=== PATIENT | male | born 1955 | race Caucasian/White ===

== ENCOUNTER 2017-03-05 09:25 | Emergency (ER) | payer MEDICAID ==
[2017-03-05 09:35] VITALS: RESP 18
--- NOTE | 2017-03-05 10:41 | RAD ---
PROCEDURE: Radiographs of the Chest and Left Ribs. HISTORY: pain, fall COMPARISON: None available. TECHNIQUE: Frontal radiograph of the chest and multiple oblique radiographs of the left ribs were obtained. FINDINGS: LEFT RIBS: No acute displaced fracture identified. LUNGS: Biapical pleural thickening. Hyperinflation may be seen in setting of COPD. Increased lucencies with upper lobe predominance compatible with emphysema. PLEURA: No significant pleural effusion. No definite pneumothorax. CARDIOVASCULAR: Heart size appears within normal limits. OTHER FINDINGS: Left upper quadrant surgical clips. IMPRESSION: Biapical pleural thickening. Findings consistent with COPD/emphysema. Left upper quadrant surgical clips. No appreciable acute displaced left rib fracture.
--- NOTE | 2017-03-05 10:55 | C.PDOC ---
History Of Present Illness 61 yr old male presents to the ER with complaints of left rib cage pain to the mid axillary line for 1 day. 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 Patient reports the pain is 10/ 10, increases with moving, palpations and while sleeping. Patient denies LOC, chest pain, SOB, vomiting, headache, weakness or numbness. Time Seen by Provider: 03/05/17 10:07 Chief Complaint (Nursing): Back Pain History Per: Patient History/Exam Limitations: no limitations Onset/Duration Of Symptoms: Days (1) Current Symptoms Are (Timing): Still Present Quality Of Discomfort: Sharp Past Medical History Reviewed: Historical Data, Nursing Documentation, Vital Signs Vital Signs: Last Vital Signs Temp 98.5 F 03/05/17 09:34 Pulse 60 03/05/17 09:34 Resp 18 03/05/17 09:34 BP 148/75 03/05/17 09:34 Pulse Ox 100 03/05/17 11:09 Family History: States: No Known Family Hx - Social History Hx Alcohol Use: Yes Hx Substance Use: Yes - Immunization History Hx Tetanus Toxoid Vaccination: No Hx Influenza Vaccination: No Hx Pneumococcal Vaccination: No Review Of Systems Except As Marked, All Systems Reviewed And Found Negative. Cardiovascular: Positive for: Other ((+) Left rib cage, mid axillary line). Negative for: Chest Pain Respiratory: Negative for: Shortness of Breath Gastrointestinal: Negative for: Vomiting Neurological: Negative for: Weakness, Numbness, Headache Physical Exam - Physical Exam Appears: Non-toxic, In Acute Distress Skin: Warm, Dry, No Rash, No Jaundice Head: Atraumatic, Normacephalic Oral Mucosa: Moist Chest: Symmetrical, Tenderness (To the 2nd, 3rd and 4th ribs, mid axillary line. No bruising or swelling. ) Cardiovascular: Rhythm Regular, No Murmur Respiratory: Normal Breath Sounds, No Rales, No Rhonchi, No Stridor, No Wheezing Gastrointestinal/Abdominal: Normal Exam, Soft, No Tenderness, No Guarding, No Rebound Extremity: Normal ROM, No Swelling Neurological/Psych: Oriented x3, Normal Speech ED Course And Treatment O2 Sat by Pulse Oximetry: 100 - Other Rad X-Ray - Ribs & Chest X-Ray: Viewed By Me, Read By Radiologist Interpretation: PROCEDURE: Radiographs of the Chest and Left Ribs. HISTORY: pain, fall. COMPARISON: None available. TECHNIQUE: Frontal radiograph of the chest and multiple oblique radiographs of the left ribs were obtained. FINDINGS: LEFT RIBS: No acute displaced fracture identified. LUNGS: Biapical pleural thickening. Hyperinflation may be seen in setting of COPD. Increased lucencies with upper lobe predominance compatible with emphysema. PLEURA: No significant pleural effusion. No definite pneumothorax. CARDIOVASCULAR: Heart size appears within normal limits. OTHER FINDINGS: Left upper quadrant surgical clips. IMPRESSION: Biapical pleural thickening. Findings consistent with COPD/emphysema. Left upper quadrant surgical clips. No appreciable acute displaced left rib fracture. Medical Decision Making Medical Decision Making: PLAN: * X-Ray - Ribs & Chest * Tramadol PO * Motrin PO Disposition Counseled Patient/Family Regarding: Studies Performed, Diagnosis, Need For Followup, Rx Given - Disposition Referrals: [facility] [Outside] Disposition: HOME/ ROUTINE Disposition Time: 11:36 Condition: STABLE Prescriptions: Ibuprofen [Motrin] 600 mg PO TID #15 tab traMADol/Acetaminophen [Ultracet 37.5/325 mg] 1 tab PO TID PRN #20 tab PRN Reason: pain Instructions: Rib Contusion (ED) Forms: General Discharge Instructions, Work Excuse - POA Present On Arrival: None - Clinical Impression Clinical Impression: Contusion of back - Scribe Statement The provider has reviewed the documentation as recorded by the Nura Knight Provider Attestation: All medical record entries made by the [employer]remedios were at my direction and personally dictated by me. I have reviewed the chart and agree that the record accurately reflects my personal performance of the history, physical exam, medical decision making, and the department course for this patient. I have also personally directed, reviewed, and agree with the discharge instructions and disposition.
[2017-03-05 11:47] VITALS: BP 126/74; PULSE 59; TEMP 98.3; O2SAT 97
== END 2017-03-05 11:48 | disposition home or self-care (01) ==
LOC: C.ER 09:25
DX: S20.222A Contusion of left back wall of thorax, initial encounter (principal); W22.8XXA Striking against or struck by other objects, initial encounter

== ENCOUNTER 2017-03-20 16:42 | Emergency (ER) | payer MEDICAID ==
[2017-03-20 16:47] VITALS: BMI 17.7
[2017-03-20 16:49] VITALS: TEMP 97.5
[2017-03-20] MEDS ORDERED: Albuterol-Ipratrop 3 mg / 0.5 (3 ml) UD INH STA ×3 (17:02→17:03)
--- NOTE | 2017-03-20 17:06 | C.PDOC ---
History Of Present Illness 61 yo male, hx of asthma, hospitalized previously, presents with wheezing/cough x 3 days. pt states ran out of inhaler, and did not have rx for inhaler. pt denies fevers, n/v/d, new cp (states he was seen in er for fall 1 week ago with improving pain to left side). no fevers, or other complaints. Time Seen by Provider: 03/20/17 16:52 Chief Complaint (Nursing): Shortness Of Breath Past Medical History Reviewed: Historical Data, Nursing Documentation, Vital Signs Vital Signs: Last Vital Signs Temp 97.5 F L 03/20/17 16:46 Pulse 84 03/20/17 18:15 Resp 18 03/20/17 18:15 BP 108/75 03/20/17 18:15 Pulse Ox 95 03/20/17 18:18 - Medical History PMH: Asthma Family History: States: Unknown Family Hx - Social History Hx Alcohol Use: No Hx Substance Use: No - Immunization History Hx Tetanus Toxoid Vaccination: No Hx Influenza Vaccination: No Hx Pneumococcal Vaccination: No Review Of Systems Except As Marked, All Systems Reviewed And Found Negative. Respiratory: Positive for: Cough, Shortness of Breath, Wheezing Physical Exam - Physical Exam Appears: Well, No Acute Distress, Other (speaking full sentences, no accessory muscle use, no increased wob. ) Skin: Normal Color, Warm, Dry Eye(s): bilateral: Normal Inspection, PERRL, EOMI Nose: Normal Throat: Normal Neck: Normal Cardiovascular: Rhythm Regular Respiratory: Wheezing Gastrointestinal/Abdominal: Normal Exam Back: Normal Inspection Extremity: Normal ROM ED Course And Treatment O2 Sat by Pulse Oximetry: 95 - Other Rad CXR X-Ray: Viewed By Me, Read By Radiologist Interpretation: HISTORY: cough. COMPARISON: Chest x-ray performed 03/05/17. TECHNIQUE: Chest PA and lateral. FINDINGS: LUNGS: Biapical pleural thickening. Increased lucencies especially within the bilateral upper lung hale compatible with underlying emphysema. There is hyperinflation, as well as architectural distortion consistent with underlying emphysema/COPD. No focal consolidation. Please note that chest x-ray has limited sensitivity for the detection of pulmonary masses. PLEURA: No significant pleural effusion identified. No definite pneumothorax . CARDIOVASCULAR: Heart size appears top normal. OSSEOUS STRUCTURES: Degenerative changes. VISUALIZED UPPER ABDOMEN: Elevation of the right hemidiaphragm. Left upper quadrant clips. OTHER FINDINGS : None. IMPRESSION: Findings compatible with COPD/ emphysema. Biapical pleural thickening. Medical Decision Making Medical Decision Making: asthma exacerbation- nebs steriods, cxr reassess 550: pt reassesed whezing improving. 615: wheezing improved. pt ambulatory in er in [place]. asking for d/c. does not wish for further observation in er. pt also asks for rx for left sided rib pain , after injury he sustained 2 weeks ago. naproxen rx given. Disposition - Disposition Disposition: HOME/ ROUTINE Disposition Time: 17:41 Condition: STABLE Additional Instructions: please follow up with your doctor. return to er with worsening symptoms or concerns. Prescriptions: Albuterol HFA [Ventolin HFA 90 mcg/actuation (8 g)] 2 puff IH [id number] PRN #1 puff PRN Reason: Wheezing Albuterol 0.083% [Albuterol 0.083% Inhal Dang (2.5 mg/3 ml) UD] 2.5 mg IH Q6 PRN #20 neb PRN Reason: Wheezing Naproxen [Naprosyn] 500 mg PO BID PRN #14 tablet PRN Reason: Pain, Mild (1-3) Nebulizer [Aeroeclipse II] 1 each MC Q6 PRN #1 each PRN Reason: Wheezing Nebulizer Accessories [Sidestream Mask] 1 each MC Q6 PRN #1 each PRN Reason: Wheezing Prednisone 50 mg PO DAILY #5 tablet Instructions: Asthma (ED) - Clinical Impression Clinical Impression: Asthma, Medication refill
[2017-03-20] MEDS ORDERED: Albuterol-Ipratrop 3 mg / 0.5 (3 ml) UD ONE (17:09)
--- NOTE | 2017-03-20 17:35 | RAD ---
HISTORY: cough COMPARISON: Chest x-ray performed 03/05/17 TECHNIQUE: Chest PA and lateral FINDINGS: LUNGS: Biapical pleural thickening. Increased lucencies especially within the bilateral upper lung hale compatible with underlying emphysema. There is hyperinflation, as well as architectural distortion consistent with underlying emphysema/COPD. No focal consolidation. Please note that chest x-ray has limited sensitivity for the detection of pulmonary masses. PLEURA: No significant pleural effusion identified. No definite pneumothorax . CARDIOVASCULAR: Heart size appears top normal. OSSEOUS STRUCTURES: Degenerative changes. VISUALIZED UPPER ABDOMEN: Elevation of the right hemidiaphragm. Left upper quadrant clips. OTHER FINDINGS: None. IMPRESSION: Findings compatible with COPD/ emphysema. Biapical pleural thickening.
[2017-03-20 18:16] VITALS: BP 108/75; PULSE 84; RESP 18
[2017-03-20 18:18] VITALS: O2SAT 95
== END 2017-03-20 18:15 | disposition home or self-care (01) ==
LOC: C.ER 16:42
DX: J45.909 Unspecified asthma, uncomplicated (principal); Z76.0 Encounter for issue of repeat prescription

== ENCOUNTER 2018-03-03 23:36 | Emergency (ER) | payer MEDICAID ==
[2018-03-03 23:36] VITALS: BMI 17.7
[2018-03-03 23:43] VITALS: BP 117/75; PULSE 71; RESP 16; O2SAT 97
[2018-03-04] MEDS ORDERED: Acetaminophen-Codeine 300/30 mg Tab PO STA (00:43)
[2018-03-04] MEDS ORDERED: Acetaminophen-Codeine 300/30 mg Tab PO ONE (00:55)
--- NOTE | 2018-03-04 01:07 | C.PDOC ---
History Of Present Illness Patient is a 62 y/o male who presents to the ED with a complaint of pain to right upper teeth for the last 2 days. Patient reports he has not seen a dentist for the last 2 years. Denies any trauma. Admits taking OTC ibuprofin without any relief. No other physical complaints at this time. Time Seen by Provider: 03/03/18 23:52 Chief Complaint (Nursing): Dental Pain History Per: Patient History/Exam Limitations: no limitations Onset/Duration Of Symptoms: Days (2) Current Symptoms Are (Timing): Still Present Recent travel outside of the [place]: No Past Medical History Reviewed: Historical Data, Nursing Documentation, Vital Signs Vital Signs: Last Vital Signs Temp 99 F 03/04/18 01:15 Pulse 71 03/03/18 23:40 Resp 16 03/03/18 23:40 BP 117/75 03/03/18 23:40 Pulse Ox 97 03/04/18 02:09 - Medical History PMH: Asthma Surgical History: No Surg Hx Family History: States: No Known Family Hx - Social History Hx Tobacco Use: Yes (heavy smoker) Hx Alcohol Use: No Hx Substance Use: No - Immunization History Hx Tetanus Toxoid Vaccination: No Hx Influenza Vaccination: No Hx Pneumococcal Vaccination: No Review Of Systems ENT: Positive for: Other (dental pain to right upper teeth) Physical Exam - Physical Exam Appears: Well, Non-toxic, No Acute Distress Head: No Swelling (negative facial swelling) Oral Mucosa: Moist Teeth: Caries (extensive with tooth decay) Gingiva: Erythema, Swelling, Other (positive gingivitis; negative fluctuant mass or swelling to floor of mouth) Neck: Normal, Other (negative swelling) Neurological/Psych: Oriented x3, Normal Speech, Normal Cognition ED Course And Treatment O2 Sat by Pulse Oximetry: 97 Progress Note: Tylenol and Penicillin administered. Patient resting comfortably , stable for discharge, and advised to follow up with destist. Disposition Counseled Patient/Family Regarding: Diagnosis, Need For Followup, Rx Given - Disposition Referrals: [facility], Dental clinic- [facility] [Other] Disposition: HOME/ ROUTINE Disposition Time: 01:04 Condition: STABLE Additional Instructions: Please follow up at [facility] Dental clinic in [place] Return to ER if worse Prescriptions: Ibuprofen [Motrin Tab] 800 mg PO QID #20 tab Penicillin VK [Penicillin VK Tab] 500 mg PO Q6H #20 tab Instructions: Tooth Decay, Adult (DC) Forms: [employer] (Latvian) - Clinical Impression Clinical Impression: Dental caries - Scribe Statement The provider has reviewed the documentation as recorded by the Scribe Sultana Celis All medical record entries made by the Scribe were at my direction and personally dictated by me. I have reviewed the chart and agree that the record accurately reflects my personal performance of the history, physical exam, medical decision making, and the department course for this patient. I have also personally directed, reviewed, and agree with the discharge instructions and disposition.
[2018-03-04 01:15] VITALS: TEMP 99
== END 2018-03-04 01:16 | disposition home or self-care (01) ==
LOC: C.ER 23:36
DX: K02.9 Dental caries, unspecified (principal)

== ENCOUNTER 2018-04-12 03:32 | Emergency (ER) | payer MEDICAID ==
[2018-04-12 03:32] VITALS: BMI 17.7
[2018-04-12 03:45] VITALS: RESP 16
[2018-04-12] MEDS ORDERED: Acetaminophen-Codeine 300/30 mg Tab PO STA (04:38)
[2018-04-12] MEDS ORDERED: Acetaminophen-Codeine 300/30 mg Tab PO ONE (04:51)
--- NOTE | 2018-04-12 05:09 | C.PDOC ---
History Of Present Illness 62 year old male presents to the ED c/o toothache. Patient was seen previously in the ED for similar complaints. Patient is currently c/o right sided dental pain. Patient denies injury, fall, trauma, fever, chills, nausea, vomit, diarrhea. Time Seen by Provider: 04/12/18 04:07 Chief Complaint (Nursing): Dental Pain History Per: Patient History/Exam Limitations: no limitations Onset/Duration Of Symptoms: Days Current Symptoms Are (Timing): Still Present Quality: Positive for: "Pain" Recent travel outside of the [place]: No Additional History Per: Patient Past Medical History Reviewed: Historical Data, Nursing Documentation, Vital Signs Vital Signs: Last Vital Signs Temp 98.5 F 04/12/18 03:41 Pulse 76 04/12/18 03:41 Resp 16 04/12/18 03:41 BP 131/82 04/12/18 03:41 Pulse Ox 97 04/12/18 05:10 - Medical History PMH: Asthma Surgical History: No Surg Hx Family History: States: Unknown Family Hx - Social History Hx Tobacco Use: Yes (heavy smoker) Hx Alcohol Use: No Hx Substance Use: No - Immunization History Hx Tetanus Toxoid Vaccination: No Hx Influenza Vaccination: No Hx Pneumococcal Vaccination: No Review Of Systems Constitutional: Negative for: Fever, Chills ENT: Positive for: Mouth Pain. Negative for: Nose Discharge, Nose Congestion Respiratory: Negative for: Cough, Shortness of Breath Gastrointestinal: Negative for: Nausea, Vomiting Skin: Negative for: Rash Neurological: Negative for: Headache Physical Exam - Physical Exam Appears: Non-toxic, No Acute Distress Skin: Normal Color, Warm, Dry Head: Atraumatic, Normacephalic Eye(s): bilateral: Normal Inspection Ear(s): Bilateral: Normal Nose: No Discharge Oral Mucosa: Moist Teeth: No Normal Dentition (poor dentition), Edentulous, Loose Gingiva: No Swelling, No Bleeding Throat: Normal, No Erythema, No Exudate Neck: Normal ROM, Supple Extremity: Normal ROM, No Tenderness, No Swelling Neurological/Psych: Oriented x3, Normal Speech Gait: Steady ED Course And Treatment O2 Sat by Pulse Oximetry: 97 (ON RA) Pulse Ox Interpretation: Normal Progress Note: Plan: - Clindamycin 300 mg PO. - Tylenol/codeine 1 ea PO Disposition - Disposition Disposition: HOME/ ROUTINE Disposition Time: 05:15 Condition: IMPROVED Additional Instructions: Follow up with your PMD and Dentist within 2-3 days. Return to ED if feel worse. Prescriptions: Clindamycin [Cleocin] 300 mg PO Q6 #20 cap Ibuprofen [Motrin Tab] 400 mg PO Q8 #30 tab Instructions: Tooth Decay, Adult (DC) Forms: [employer] (Lithuanian) - Clinical Impression Clinical Impression: Dental caries - PA / DATA SME / Resident Statement MD/DO has reviewed & agrees with the documentation as recorded. - Scribe Statement The provider has reviewed the documentation as recorded by the Scribe Jose Benedict All medical record entries made by the Scribe were at my direction and personally dictated by me. I have reviewed the chart and agree that the record accurately reflects my personal performance of the history, physical exam, medical decision making, and the department course for this patient. I have also personally directed, reviewed, and agree with the discharge instructions and disposition.
[2018-04-12 05:25] VITALS: BP 116/75; PULSE 63; TEMP 98.4
[2018-04-12 05:31] VITALS: O2SAT 97
== END 2018-04-12 05:25 | disposition home or self-care (01) ==
LOC: C.ER 03:32
DX: K02.9 Dental caries, unspecified (principal)

== ENCOUNTER 2018-07-28 03:55 | Emergency (ER) | payer MEDICAID ==
[2018-07-28 03:55] VITALS: BMI 17.7
[2018-07-28 04:10] VITALS: BP 124/88; PULSE 68; RESP 16; TEMP 99.5; O2SAT 96
[2018-07-28] MEDS ORDERED: Alum-Mag Hydrox-Simethicone Susp (30 mL) PO STA (04:22)
--- NOTE | 2018-07-28 04:25 | C.PDOC ---
History Of Present Illness Pt presents to ER c/o of right lower toothache x 3 days not improving from last visit. Pt was seen in ED yesterday and was prescribed PenVK and tramadol but says pain medications are not helping him and would like " stronger pain meds". Pt denies fever, trauma, facial swelling, headache, earache. pt has not seen a dentist yet Time Seen by Provider: 07/28/18 04:11 Chief Complaint (Nursing): Dental Pain History Per: Patient History/Exam Limitations: no limitations Onset/Duration Of Symptoms: Persistent Current Symptoms Are (Timing): Still Present Severity: Moderate Quality: Positive for: Aching Past Medical History Vital Signs: Last Vital Signs Temp 99.5 F 07/28/18 04:06 Pulse 68 07/28/18 04:06 Resp 16 07/28/18 04:06 BP 124/88 07/28/18 04:06 Pulse Ox 96 07/28/18 04:35 - Medical History PMH: Asthma Surgical History: No Surg Hx Family History: States: Unknown Family Hx - Social History Hx Tobacco Use: Yes (heavy smoker) Hx Alcohol Use: No Hx Substance Use: No - Immunization History Hx Tetanus Toxoid Vaccination: No Hx Influenza Vaccination: No Hx Pneumococcal Vaccination: No Review Of Systems Constitutional: Negative for: Fever, Chills ENT: Positive for: Mouth Pain (right toothache). Negative for: Ear Pain Respiratory: Negative for: Shortness of Breath Neurological: Negative for: Headache, Dizziness Physical Exam - Physical Exam Appears: Well, Non-toxic, No Acute Distress Skin: Normal Color Head: Atraumatic Eye(s): bilateral: Normal Inspection Oral Mucosa: Moist Tongue: Normal Appearing Lips: Normal Appearing Teeth: No Normal Dentition (poor dentition), Caries (extensive), Tender To Palpation (right lower premolar area with caries) Gingiva: Erythema (right lower premolar), Swelling (minimal localized to right lower premolar area), No Abscess Neck: Normal, Supple Neurological/Psych: Oriented x3, Normal Speech, Normal Cognition ED Course And Treatment O2 Sat by Pulse Oximetry: 96 Pulse Ox Interpretation: Normal Progress Note: Pt advised may take supplemental tylenol ES along with tramadol or may d/c tramadol and take motrin PO as instructed. Pt strongly advised to see dentist at [facility]- walk in today or any other dentist in 1-2 d Reassessment Condition: Improved Disposition Counseled Patient/Family Regarding: Diagnosis, Need For Followup, Rx Given - Disposition Referrals: [facility], Dental clinic [Other] Disposition: HOME/ ROUTINE Disposition Time: 04:31 Condition: STABLE Additional Instructions: Please continue current medications/ May take tylenol along with tramadol for pain Or D/c tramadol and take PO motrin Follow up with dentist- may walk in at [facility] dental clinic today Return to ER if any concerns or worse Prescriptions: Ibuprofen [Motrin Tab] 800 mg PO QID #20 tab Instructions: Dental Pain (DC) Forms: [employer] (Indonesian) - Clinical Impression Clinical Impression: Pain, dental
[2018-07-28] MEDS ORDERED: Alum-Mag Hydrox-Simethicone Susp (30 mL) ONE (04:30)
== END 2018-07-28 04:57 | disposition home or self-care (01) ==
LOC: C.ER 03:55
DX: K08.89 Other specified disorders of teeth and supporting structures (principal)

== ENCOUNTER 2019-01-01 12:26 | Emergency (ER) | payer SELFPAY ==
[2019-01-01 12:26] VITALS: BMI 17.7
[2019-01-01 12:38] VITALS: BP 111/67; PULSE 72; RESP 18; TEMP 98.3; O2SAT 96
--- NOTE | 2019-01-01 13:52 | C.PDOC ---
History Of Present Illness 63 y/o male presents with worsening dental pain and swelling to right side face since this morning. denies fever or chills. pt has been seen in ed several times in last few months for dental pain; denies fever and chills. Time Seen by Provider: 01/01/19 13:05 Chief Complaint (Nursing): ENT Problem History Per: Patient History/Exam Limitations: no limitations Onset/Duration Of Symptoms: Days (2) Current Symptoms Are (Timing): Worse Severity: Moderate Quality: Positive for: "Pain" Past Medical History Reviewed: Historical Data, Nursing Documentation, Vital Signs Vital Signs: Last Vital Signs Temp 98.3 F 01/01/19 12:37 Pulse 72 01/01/19 12:37 Resp 18 01/01/19 12:37 BP 111/67 01/01/19 12:37 Pulse Ox 96 01/01/19 12:37 - Medical History PMH: Asthma Family History: States: Unknown Family Hx - Social History Hx Tobacco Use: Yes (heavy smoker) Hx Alcohol Use: No Hx Substance Use: No - Immunization History Hx Tetanus Toxoid Vaccination: No Hx Influenza Vaccination: No Hx Pneumococcal Vaccination: No Review Of Systems Constitutional: Negative for: Fever, Chills ENT: Positive for: Mouth Pain, Mouth Swelling, Other (facial swelling right side) Skin: Positive for: Other (swelling to face) Neurological: Negative for: Weakness, Numbness Physical Exam - Physical Exam Appears: Non-toxic, No Acute Distress Skin: Warm, Dry Head: Atraumatic, Swelling (to right side face from cheek toward lower lid) Eye(s): bilateral: Normal Inspection Nose: No Discharge Oral Mucosa: Moist Tongue: Normal Appearing Lips: Normal Appearing Teeth: Other (partially edentulous, remaining teet broken at gumline with blackened stubs visible. tender to palpation to right canine tooth with swelling to gingiva noted. ) Gingiva: Erythema, Swelling, Tender Throat: No Erythema, No Exudate Neck: Supple ED Course And Treatment - Laboratory Results Result Diagrams: 01/01/19 13:41 O2 Sat by Pulse Oximetry: 96 Medical Decision Making Medical Decision Making: pt with dental infection right upper tooth, concern for orbital cellulitis given spread of swelling from lip toward eye. ct scan of facial bones and orbits with iv contrast as well as bloodwork ordered. RN dennis blood, unsuccessful attempt to insert iv. pt became verbally abusive to nurse. I spoke to patient and informed him of need for iv for contrast for ct scan and for antibiotics; another nurse notified to come insert iv, Several minutes later, patient not found in assigned bed. Patient has eloped. Disposition - Disposition Disposition: ELOPEMENT - ER ONLY Disposition Time: 14:04 Condition: SERIOUS Forms: [employer] (Bermudian) - Clinical Impression Clinical Impression: Dental abscess
[2019-01-01 13:58] LABS: ALB/GLOB RATIO 1.3 (1.0-2.1); ALBUMIN 4.1 g/dL (3.5-5.0); ALT/SGPT 25 U/L (21-72); AST/SGOT 26 U/L (17-59); BLOOD UREA NITROGEN 17 mg/dL (9-20); CALCIUM 9.1 mg/dl (8.6-10.4); GFR NON-AFRICAN AMERICAN > 60
[2019-01-01] MEDS ORDERED: Iodixanol 320 MG/ML 100 ML BOTTLE IV ONE (14:37)
== END 2019-01-01 13:05 | disposition left against medical advice (07) ==
LOC: C.ER 12:26
DX: K04.7 Periapical abscess without sinus (principal); F17.210 Nicotine dependence, cigarettes, uncomplicated